=== PATIENT | male | born 1940 | race Caucasian/White ===

== ENCOUNTER 2016-09-14 09:11 | Day surgery (SDC) | payer MEDICARE, OTHER ==
[2016-09-14] MEDS ORDERED: LACTATED RINGERS 1,000 ML IV ONE (10:00)
[2016-09-14] MEDS ORDERED: MIDAZOLAM 2 MG/2 ML VIAL IVP ONE (11:04)
[2016-09-14] MEDS ORDERED: fentaNYL 100 MCG/2 ML VIAL IVP ONE (11:04)
== END 2016-09-14 09:12 | disposition home or self-care (01) ==
PROC: 0DBN8ZX Excision of Sigmoid Colon, Via Natural or Artificial Opening Endoscopic, Diagnostic (ICD-10-PCS; 2016-09-14)
PROC: 0DBK8ZX Excision of Ascending Colon, Via Natural or Artificial Opening Endoscopic, Diagnostic (ICD-10-PCS; principal; 2016-09-14 10:00)
DX: K62.5 Hemorrhage of anus and rectum (principal); D12.2 Benign neoplasm of ascending colon; K63.5 Polyp of colon; K57.30 Diverticulosis of large intestine without perforation or abscess without bleeding; I78.1 Nevus, non-neoplastic; K64.0 First degree hemorrhoids; I25.10 Atherosclerotic heart disease of native coronary artery without angina pectoris; Z79.82 Long term (current) use of aspirin; E78.5 Hyperlipidemia, unspecified
CPT/HCPCS: 45380; J7120

== ENCOUNTER 2017-03-24 11:05 | Outpatient (CLI) | payer MEDICARE, OTHER ==
--- NOTE | 2017-03-24 13:49 | XRAY Report ---
CHEST TWO VIEWS: 03/24/2017 CLINICAL HISTORY: Lymphadenopathy. COMPARISON: 05/04/2014. FINDINGS: The heart size is normal. The lungs are clear. No pleural effusion or pneumothorax. Age-re lated changes in the bones. IMPRESSION: NEGATIVE TWO VIEW CHEST FOR AGE. JOB #: [id number] EXT JOB #:[id number]
== END 2017-03-24 11:06 | disposition home or self-care (01) ==
LOC: DI.S 11:05
PROVIDERS: ATTEND Specialist
DX: R59.0 Localized enlarged lymph nodes (principal)
CPT/HCPCS: 71020

== ENCOUNTER 2017-05-15 08:14 | Outpatient (CLI) | payer MEDICARE, OTHER | END 2017-05-15 08:15 | disposition home or self-care (01) | LOC: DI 08:14 | PROVIDERS: ATTEND Specialist | DX: R94.31 Abnormal electrocardiogram [ECG] [EKG] (principal); I25.10 Atherosclerotic heart disease of native coronary artery without angina pectoris; I25.2 Old myocardial infarction; E78.4 Other hyperlipidemia; R59.9 Enlarged lymph nodes, unspecified | CPT/HCPCS: 93306 ==

== ENCOUNTER 2017-06-28 14:08 | Outpatient (CLI) | payer MEDICARE, OTHER | END 2017-06-28 14:09 | disposition short-term general hospital (02) | LOC: EMS 14:08 | PROVIDERS: ATTEND Surgery | DX: R53.1 Weakness (principal) | CPT/HCPCS: A0425; A0427 ==

== ENCOUNTER 2019-05-17 03:25 | Outpatient (CLI) | payer MEDICARE, OTHER | END 2019-05-17 03:26 | disposition critical access hospital (66) | LOC: EMS 03:25 | PROVIDERS: ATTEND Surgery | DX: R41.0 Disorientation, unspecified (principal); R06.6 Hiccough | CPT/HCPCS: A0425; A0429 ==

== ENCOUNTER 2019-05-17 03:52 | Emergency (ER) | payer MEDICARE, OTHER ==
--- NOTE | 2019-05-17 04:23 | ED Physician Documentation ---
PD HPI ALTERED MENTAL STATUS - Stated complaint Stated Complaint: AMS - Chief complaint Chief Complaint: Neuro - History obtained from History obtained from: Patient - History of Present Illness Timing - onset: How many minutes ago (approximately 30-45 minutes [facility] [employer]) Timing - duration: Minutes (15) Timing - details: Abrupt onset Quality / character: Confused Associated symptoms: Headache, Stiff neck. No: Fever Basline status: Alert and oriented X 3, Ambulatory, Independent Similar symptoms before: Has not had sx before Recently seen: Other (underwent upper endoscopy 05/11/19 to treat food bolus impaction.) - Additional information Additional information: patient's chief complaint/concern is that he had approximately 15 minutes of difficulty with speech. Patient underwent upper endoscopy 05/11/19 for food bolus impaction; this procedure was performed at [facility]. He says he has been only taking in liquid diet since that time, and he emphasizes that he has been drinking a lot of water. Tonight, he vomited. His then took his temperature and it was normal. She then was talking to him and thought he was making odd statements. She asked him what his temperature was (she had read it off to him), and he could not recall. He then started talking about unrelated and odd things, and seemed to be having great difficulty and frustration with word-finding, at times not even speaking. This lasted approximately 15 minutes but by the time of ED presentation, it has completely resolved. In ED, he tells me he is having right-sided headache and feels neck stiffness. I note a right neck/chest rash, and he says this started 3 days ago. Review of Systems Constitutional: denies: Fever, Chills, Myalgias, Sweats Eyes: denies: Loss of vision, Decreased vision Cardiac: reports: Reviewed and negative Respiratory: reports: Reviewed and negative GI: reports: Nausea, Vomiting. denies: Abdominal Pain, Constipation, Diarrhea : reports: Frequency (reports urinary frequency that sounds proportional to PO intake; he emphasizes that he has been drinking copious amounts of water since having the procedure a few days ago). denies: Dysuria Skin: reports: Rash (right neck and chest/upper back) Musculoskeletal: denies: Neck pain (neck feels "stiff" (per patient), but not pain per se) Neurologic: reports: Confused, Altered mental status, Headache. denies: Generalized weakness, Focal weakness, Numbness PD PAST MEDICAL HISTORY - Past Medical History Past Medical History: Yes Cardiovascular: Coronary artery disease, [place] Respiratory: None Neuro: None Endocrine/Autoimmune: None GI: None : None HEENT: None Psych: None Musculoskeletal: Rheumatoid arthritis Derm: Other - Past Surgical History Past Surgical History: Yes General: Cholecystectomy Cardiovascular: Coronary stent - Present Medications Home Medications: Ambulatory Orders Medication Instructions Recorded Confirmed Atorvastatin [Lipitor] 80 mg ORAL QPM 05/04/14 09/14/16 Lactobacillus Combo No.10 1 each PO PRN PRN 05/04/14 09/14/16 [Probiotic] Aspirin [Aspir-Low] 81 mg PO DAILY 09/14/16 09/14/16 Baclofen [Lioresal] 10 mg PO TID #20 tablet 05/17/19 - Allergies Allergies/Adverse Reactions: Allergies Allergy/AdvReac Type Severity Reaction Status Date / Time codeine AdvReac Hallucinati Verified 05/11/19 14:35 ons - Social History Does the pt smoke?: No Smoking Status: Never smoker Does the pt drink ETOH?: Yes Does the pt have substance abuse?: No - Immunizations Immunizations are current?: Yes - POLST Patient has POLST: No PD ED PE NORMAL - Vitals Vital signs reviewed: Yes - General General: Alert and oriented X 3, No acute distress, Well developed/nourished - HEENT HEENT: Atraumatic, PERRL, EOMI, Moist mucous membranes - Neck Neck: Supple, no meningeal sign - Cardiac Cardiac: RRR, No murmur, No gallop, No rub - Respiratory Respiratory: No respiratory distress, Clear bilaterally - Abdomen Abdomen: Soft, Non tender, Non distended - Back Back: No CVA TTP - Extremities Extremities: No edema - Neuro Neuro: Alert and oriented X 3, 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, No motor deficit, No sensory deficit, Normal speech Eye Opening: Spontaneous Motor: Obeys Commands Verbal: Oriented GCS Score: 15 PD ED PE EXPANDED - Derm Derm: Rash (exanthem on right upper chest, shoulder, trapezial ridge, and upper right back: patchy flat erythema with clusters of clear vesicles) Results - Vitals Vitals: Vital Signs - 24 hr 05/17/19 05/17/19 05/17/19 03:56 06:14 07:10 Temperature 37 C Heart Rate 81 66 67 Respiratory 16 16 16 Rate Blood Pressure 155/93 H 147/82 H 150/67 H O2 Saturation 96 94 93 05/17/19 08:38 Temperature Heart Rate 84 Respiratory 18 Rate Blood Pressure 157/73 H O2 Saturation 98 Oxygen O2 Source [With Activity] Room air O2 Source [Without Activity] Room air O2 Source Room air - Labs Labs: Laboratory Tests 05/17/19 05/17/19 05/17/19 04:00 04:00 04:00 WBC 8.4 RBC 4.15 L Hgb 14.5 Hct 39.2 L MCV 94.5 H MCH 34.9 H MCHC 37.0 H RDW 11.7 L Plt Count 160 MPV 9.8 Neut # (Auto) 6.6 Lymph # (Auto) 1.1 L [place] # (Auto) 0.6 Eos # (Auto) 0.0 Baso # (Auto) 0.0 Absolute Nucleated RBC 0.00 Nucleated RBC % 0.0 Sodium 124 L Potassium 3.5 Chloride 91 L Carbon Dioxide 22 Anion Gap 11.0 BUN 11 Creatinine 0.6 Estimated GFR (MDRD) 130 Glucose 97 Calcium 8.4 L Total Bilirubin 1.8 H AST 32 ALT 37 Alkaline Phosphatase 48 Total Protein 6.5 L Albumin 3.8 Globulin 2.7 Albumin/Globulin Ratio 1.4 Lipase 31 TSH 1.84 Urine Color Urine Clarity Urine pH Ur Specific [place] Urine Protein Urine Glucose (UA) Urine Ketones Urine Occult Blood Urine Nitrite Urine Bilirubin Urine Urobilinogen Ur Leukocyte Esterase Urine RBC Urine WBC Ur Squamous Epith Cells Urine Bacteria Ur Microscopic Review Urine Culture Comments 05/17/19 04:54 WBC RBC Hgb Hct MCV MCH MCHC RDW Plt Count MPV Neut # (Auto) Lymph # (Auto) [place] # (Auto) Eos # (Auto) Baso # (Auto) Absolute Nucleated RBC Nucleated RBC % Sodium Potassium Chloride Carbon Dioxide Anion Gap BUN Creatinine Estimated GFR (MDRD) Glucose Calcium Total Bilirubin AST ALT Alkaline Phosphatase Total Protein Albumin Globulin Albumin/Globulin Ratio Lipase TSH Urine Color YELLOW Urine Clarity CLEAR Urine pH 6.0 Ur Specific [place] <=1.005 Urine Protein NEGATIVE Urine Glucose (UA) NEGATIVE Urine Ketones 40 H Urine Occult Blood SMALL H Urine Nitrite NEGATIVE Urine Bilirubin NEGATIVE Urine Urobilinogen 0.2 (NORMAL) Ur Leukocyte Esterase NEGATIVE Urine RBC 0-5 Urine WBC 0-3 Ur Squamous Epith Cells RARE Squamous Urine Bacteria None Seen Ur Microscopic Review INDICATED Urine Culture Comments NOT INDICATED - Rads (name of study) CT head Radiology: Prelim report reviewed, See rad report PD MEDICAL DECISION MAKING - ED course Complexity details: reviewed old records, reviewed results, re-evaluated patient, considered differential ED course: reassuring results on CT head (unremarkable for acute or otherwise concerning findings), and his difficulty with speech had resolved [employer] [employer]. He has notable hyponatremia on blood tests (124) and this is compared to 140 on 05/11. This is likely due to the copious free water intake he describes to me; it is not clear why he has been drinking so much water, although in conversing with him , I get the impression that he feels this is a means of compensating for decreased PO intake (which sounds like is due to fear that something will again get caught in esophagus). At times, patient and spouse sound as if they are describing expressive aphasia; he says he was able to form normal thoughts but had difficulty getting the words out. At other times, it sounds as if he was having difficulty focusing/mentating, and this was why he had difficulty communicating. The former would be more suggestive of TIA while the latter would be typical for hyponatremia. I discussed this with patient and spouse and explained that it would be best to assume some element of both of these processes, and that further testing will likely be required (such as rechecking sodium levels, and following up with further testing for TIA such as carotid doppler studies and cardiac echo, possibly MRI). As he is feeling well at end of ED stay, these tests can take place in the outpatient setting. They understand he should return immediately if symptoms return or worsen in any way. As for the rash, it is clearly shingles. The symptoms started at least 72 hours ago and he does not feel that there are new lesions still forming. We discussed the option of antiviral medication, but beyond the 72 hour onset, benefit is questionable. Furthermore, patient is still quite reluctant to try anything solid PO including medications, and the schedule for these medications would be 3-5 times per day, depending on which medication is used. He declines antivirals, which is reasonable in an immunocompetent host with over 72 hours since symptom onset and no new lesions forming. He was given 2 liters NS to raise sodium level. Recheck not performed after this was d/w patient and spouse. There is no reason to suspect the level will decrease after this intervention, and as he is feeling well and sodium level is likely to be trending above 125 at this point, I did not feel there would be a benefit in holding him in ED until another sodium level is checked. However, I emphasized to him that his frequent water intake is likely contributing to, and probably simply causing, his low sodium. I instructed him to add some salt to his diet for the short term (5-7 days), and to try to hydrate with substances other than free ("plain") water for most of the day. Departure - Departure Disposition: 01 Home, Self Care Clinical Impression: Hyponatremia, TIA (transient ischemic attack) Shingles Qualifiers: Herpes zoster complications: without complications Qualified Code(s): B02.9 - Zoster without complications Condition: Good Instructions: ED Hyponatremia, ED Transient Ischemic Attack, ED Shingles Follow-Up: Dannie Medina ND [Primary Care Provider] - Prescriptions: Baclofen [Lioresal] 10 mg PO TID #20 tablet Discharge Date/Time: 05/17/19 09:17
[2019-05-17 04:58] LABS: BASOPHILS % (AUTO) 0.4 %; EOSINOPHILS % (AUTO) 0.5 %; HGB - HEMOGLOBIN 14.5 g/dL (14.0-18.0); LYMPHOCYTES # (AUTO) 1.1 10^3/uL (1.5-3.5); MEAN CORPUSCULAR HEMOGLOBIN 34.9 pg (27.0-31.0); MEAN CORPUSCULAR VOLUME 94.5 fL (80.0-94.0); MEAN PLATELET VOLUME 9.8 fL (7.4-11.4); MONOCYTES # (AUTO) 0.6 10^3/uL (0.0-1.0); MONOCYTES % (AUTO) 7.4 %; NEUTROPHILS # (AUTO) 6.6 10^3/uL (1.5-6.6); NEUTROPHILS % (AUTO) 77.9 %; PLT - PLATELET COUNT 160 10^3/uL (130-450); RED BLOOD COUNT 4.15 10^6/uL (4.70-6.10); RED CELL DISTRIBUTION WIDTH 11.7 % (12.0-15.0); WHITE BLOOD COUNT 8.4 x10^3/uL (4.8-10.8)
[2019-05-17 05:02] LABS: BILIRUBIN,URINE NEGATIVE (NEGATIVE); GLUCOSE, URINE (UA) NEGATIVE (NEGATIVE); KETONES,URINE (UA) 40 mg/dL (NEGATIVE); LEUKOCYTE ESTERASE, URINE NEGATIVE (NEGATIVE); NITRITE,URINE NEGATIVE (NEGATIVE); OCCULT BLOOD,URINE SMALL (NEGATIVE); PROTEIN,URINE NEGATIVE (NEGATIVE); UROBILINOGEN,URINE 0.2 (NORMAL) E.U./dL (NORMAL)
[2019-05-17 05:10] LABS: BACTERIA,URINE None Seen /HPF (None Seen); CLARITY,URINE CLEAR (CLEAR); RBC,URINE 0-5 /HPF (0-5); SQUAMOUS EPITHELIAL CELL,UR RARE Squamous (<= Few)
[2019-05-17 05:10] LABS: ALBUMIN 3.8 g/dL (3.2-5.5); ALBUMIN/GLOBULIN RATIO 1.4 (1.0-2.2); BILIRUBIN,TOTAL 1.8 mg/dL (0.2-1.0); CALCIUM 8.4 mg/dL (8.5-10.3); CREATININE 0.6 mg/dL (0.6-1.2); TOTAL PROTEIN 6.5 g/dL (6.7-8.2)
[2019-05-17] MEDS ORDERED: BACLOFEN 10 MG TABLET PO STA (05:18)
--- NOTE | 2019-05-17 05:33 | CT Report ---
Reason: AMS Procedure Date: 05/17/2019 Accession Number: [id number] / [id number] Procedure: CT - HEAD WO CPT Code: Final Report FULL RESULT: EXAM: CT HEAD EXAM DATE: 05/17/2019 05:17 AM CLINICAL HISTORY: Altered mental status. COMPARISON: None. TECHNIQUE: Multiaxial CT images were obtained from the foramen magnum to the vertex. Reformats: Sagittal and coronal. IV contrast: None. In accordance with CT protocol optimization, one or more of the following dose reduction techniques were utilized for this exam: automated exposure control, adjustment of mA and/or KV based on patient size, or use of iterative reconstructive technique. FINDINGS: Parenchyma: No intraparenchymal hemorrhage. No evidence of mass, midline shift or CT findings of acute infarction. Mejia-white differentiation is distinct. Diffuse mild chronic microangiopathic white matter changes are evident. Extraaxial Spaces: Normal for age. No subdural or epidural collections identified. Ventricles: The ventricles and cortical sulci are enlarged, consistent with age-related tissue loss. Sinuses: Imaged paranasal sinuses, orbits, and mastoids show no significant abnormality. Bones: No evidence of fracture or calvarial defect. Other: None. IMPRESSION: Mild senescent changes without evidence of acute intracranial abnormality. RADIA
[2019-05-17] MEDS ORDERED: SODIUM CHLORIDE 0.9% 1,000 ML IV STA ×2 (06:48→06:49)
[2019-05-17 08:38] VITALS: BP 157/73
== END 2019-05-17 09:17 | disposition home or self-care (01) ==
LOC: EDUNIT# → ED 03:52
DX: G45.9 Transient cerebral ischemic attack, unspecified (principal); B02.9 Zoster without complications; E87.1 Hypo-osmolality and hyponatremia; R35.0 Frequency of micturition; I25.10 Atherosclerotic heart disease of native coronary artery without angina pectoris; Z95.5 Presence of coronary angioplasty implant and graft; Z79.82 Long term (current) use of aspirin
CPT/HCPCS: 36415; 70450; 80053; 81001; 83690; 84443; 85025; 99284; A9270; 81003; 87086

== ENCOUNTER 2019-06-04 10:01 | Day surgery (SDC) | payer MEDICARE, OTHER ==
[2019-06-04] MEDS ORDERED: LACTATED RINGERS 1,000 ML IV ONE (10:09)
[2019-06-04 10:42] LABS: CALCIUM 8.9 mg/dL (8.5-10.3); CREATININE 0.8 mg/dL (0.6-1.2)
[2019-06-04] MEDS ORDERED: LIDO GARGLE 30 ML BOTTLE ONE (10:56)
--- NOTE | 2019-06-04 11:09 | ANESTHESIA ---
Pre-Anesthesia VS, & Labs - Diagnosis Esophagitis, food bolus impaction - Procedure EGD Vital Signs: Temp Pulse Resp BP Pulse Ox 36.4 C L 117 H 18 160/99 H 94 06/04/19 10:13 06/04/19 10:13 06/04/19 10:13 06/04/19 10:13 06/04/19 10:13 Height 5 ft 8 in Weight (kg) 88 kg Body Mass Index 32.6 Home Medications and Allergies Atorvastatin [Lipitor] 80 mg ORAL QPM 05/04/14 Lactobacillus Combo No.10 [Probiotic] 1 each PO PRN PRN 05/04/14 Aspirin [Aspir-Low] 81 mg PO DAILY 09/14/16 Allergies/Adverse Reactions: Allergies Allergy/AdvReac Type Severity Reaction Status Date / Time codeine AdvReac Hallucinati Verified 05/11/19 14:35 ons Anes History & Medical History - Anesthetic History Anesthesia Complications: reports: No previous complications Family history of Anesthesia Complications: Denies Family history of Malignant Hyperthermia: Denies - Medical History Cardiovascular: reports: Coronary artery disease, [place], Other (two coronary stents and joey having any chest pain/pressure.sob) Pulmonary: reports: None Gastrointestinal: reports: Ulcers, Colon polyps Urinary: reports: Benign prostate hypertrophy, Other Neuro: reports: None Musculoskeletal: reports: None Endocrine/Autoimmune: reports: None Blood Disorders: reports: None Skin: reports: Other Smoking Status: Never smoker Psychosocial: reports: No issues indicated - Surgical History General: Cholecystectomy, Colonoscopy, EGD Cardiothoracic: Coronary stent Urologic: Prostatic surgery Exam General: Alert, Oriented x3, Cooperative, No acute distress Dental: WNL Mouth Openin Fingerbreadth Neck Mobility: Normal Mallampati classification: II Thyromental Distance: 4-6 cm Respiratory: Lungs clear, Normal breath sounds, No respiratory distress, No accessory muscle use Cardiovascular: Regular rate, Normal S1, Normal S2, No murmurs Abdomen: Normal bowel sounds, Soft, No tenderness, No hepatospenomegaly, No masses Extremities: No clubbing, No cyanosis, No edema, Normal pulses, No tenderness/swelling Neurological: Normal gait, Normal speech, Strength at 5/5 X4 ext, Normal tone, Sensation intact, Cranial nerves 3-12 NL, Reflexes 2+ Mental/Cognitive Status: Alert/Oriented X3, Normal for patient Cognitive Status: Within normal limits Plan Anesthesia Type: MAC Consent for Procedure(s) Verified and Reviewed: Yes Code Status: Attempt Resuscitation ASA classification: 3-Severe systemic disease Is this case an emergency?: No
[2019-06-04] MEDS ORDERED: LIDO GARGLE 30 ML BOTTLE PO ONE (11:29)
[2019-06-04 12:33] VITALS: BP 144/95
== END 2019-06-04 10:02 | disposition home or self-care (01) ==
LOC: SDS 10:01
PROVIDERS: ATTEND Surgery
PROC: 0DB98ZX Excision of Duodenum, Via Natural or Artificial Opening Endoscopic, Diagnostic (ICD-10-PCS; 2019-06-04)
PROC: 0DB68ZX Excision of Stomach, Via Natural or Artificial Opening Endoscopic, Diagnostic (ICD-10-PCS; 2019-06-04)
PROC: 0DB58ZX Excision of Esophagus, Via Natural or Artificial Opening Endoscopic, Diagnostic (ICD-10-PCS; 2019-06-04)
PROC: 0D748ZZ Dilation of Esophagogastric Junction, Via Natural or Artificial Opening Endoscopic (ICD-10-PCS; principal; 2019-06-04 11:15)
DX: K22.11 Ulcer of esophagus with bleeding (principal); R13.10 Dysphagia, unspecified; K22.2 Esophageal obstruction; K44.9 Diaphragmatic hernia without obstruction or gangrene; Z87.891 Personal history of nicotine dependence
CPT/HCPCS: 43239; 43249; 80048; A9270; J7120

== ENCOUNTER 2019-07-19 16:13 | Outpatient (CLI) | payer MEDICARE, OTHER ==
--- NOTE | 2019-07-22 09:09 | Ultrasound Report ---
Reason: HISTORY OF TIA Procedure Date: 07/19/2019 Accession Number: [id number] / [id number] Procedure: US - Carotid Doppler Complete CPT Code: Final Report FULL RESULT: EXAM: BILATERAL CAROTID AND VERTEBRAL ARTERY DUPLEX DOPPLER ULTRASOUND: EXAM DATE: 07/19/2019 07:10 PM CLINICAL HISTORY: History of TIA. COMPARISON: None. TECHNIQUE: Grayscale imaging, color Doppler, and duplex spectral Doppler were used to evaluate the carotid and vertebral arteries bilaterally. Static images were obtained. FINDINGS: Bilateral common carotid arteries have intimal hyperplasia. There is plaque at the bulbs with plaque at the proximal ICA and ECAs bilaterally. No significant elevation of peak systolic velocities in the ICAs.Normal antegrade flow is present in bilateral vertebral arteries. VELOCITIES (cm/sec): Right CCA mid: PSV 100.9 cm/sec CCA dist: PSV 88.8 cm/sec ICA prox: PSV 95.7 cm/sec, EDV 27.3 cm/sec ICA mid: PSV 90.4 cm/sec, EDV 30.4 cm/sec ICA dist: PSV 94.2 cm/sec, EDV 28.9 cm/sec ECA: PSV 129.9 cm/sec Vert: PSV 51.4 cm/sec ICA/CCA: 0.9 Left CCA mid: PSV 110.0 cm/sec CCA dist: PSV 89.4 cm/sec ICA prox: PSV 95.0 cm/sec, EDV 19.5 cm/sec ICA mid: PSV 98.5 cm/sec, EDV 24.5 cm/sec ICA dist: PSV 92.1 cm/sec, EDV 23.8 cm/sec ECA: PSV 105.6 cm/sec Vert: PSV 44.3 cm/sec ICA/CCA: 0.9 ICA diameter stenosis: Right: <50% by velocity and <70% by NASCET criteria. Left: <50% by velocity and <70% by NASCET criteria. IMPRESSION: 1. There is plaque in the bulbs, proximal ICAs and ECAs without significant stenosis. 2. In the right carotid artery there are no elevated carotid artery velocities to suggest hemodynamically significant stenosis. 3. In the left carotid artery there are no elevated carotid artery velocities to suggest hemodynamically significant stenosis. 4. Normal antegrade flow is present in bilateral vertebral arteries. General Recommendations: Stenosis =50% ICA - Follow-up ultrasound 6-12 months Stenosis <50% ICA - High Risk Patient with plaque - Follow-up ultrasound 1-2 years Normal Study but High Risk Patient - Follow-up ultrasound 3-5 years Management recommendations and diagnostic criteria are based on current IAC endorsed standards in Carotid Artery Stenosis: Grayscale and Doppler Ultrasound Diagnosis. Validated velocity measurements with angiographic measurements and velocity criteria are extrapolated from diameter data as defined by the Society of Radiologists in Ultrasound Consensus Conference Radiology 2003; 229;340-346. RADIA
== END 2019-07-19 16:14 | disposition home or self-care (01) ==
LOC: DI 16:13
PROVIDERS: ATTEND Family Medicine
DX: Z86.73 Personal history of transient ischemic attack (TIA), and cerebral infarction without residual deficits (principal)
CPT/HCPCS: 93880

== ENCOUNTER 2020-06-13 16:52 | Outpatient (CLI) | payer MEDICARE, OTHER | END 2020-06-13 16:53 | disposition EMS.NT | LOC: EMS 16:52 | PROVIDERS: ATTEND Surgery | DX: Z03.89 Encounter for observation for other suspected diseases and conditions ruled out (principal) ==

== ENCOUNTER 2020-10-22 12:36 | Outpatient (CLI) | payer MEDICARE, OTHER | END 2020-10-22 12:37 | disposition critical access hospital (66) | LOC: EMS 12:36 | DX: R53.1 Weakness (principal); R50.9 Fever, unspecified | CPT/HCPCS: A0425; A0429 ==

== ENCOUNTER 2020-11-05 01:28 | Outpatient (CLI) | payer MEDICARE, OTHER | END 2020-11-05 01:29 | disposition EMS.NT | LOC: EMS 01:28 | DX: Z03.89 Encounter for observation for other suspected diseases and conditions ruled out (principal) ==

== ENCOUNTER 2021-06-11 10:13 | Outpatient (CLI) | payer MEDICARE, OTHER | END 2021-06-11 10:14 | disposition EMS.NT | LOC: EMS 10:13 | DX: S00.01XA Abrasion of scalp, initial encounter (principal); W18.39XA Other fall on same level, initial encounter; Y93.89 Activity, other specified; Y92.002 Bathroom of unspecified non-institutional (private) residence as the place of occurrence of the external cause ==

== ENCOUNTER 2022-11-01 21:58 | Outpatient (CLI) | payer MEDICARE, OTHER | END 2022-11-01 21:59 | disposition EMS.NT | LOC: EMS 21:58 | DX: Z03.89 Encounter for observation for other suspected diseases and conditions ruled out (principal) ==

== ENCOUNTER 2022-11-11 04:52 | Outpatient (CLI) | payer MEDICARE, OTHER | END 2022-11-11 04:53 | disposition short-term general hospital (02) | LOC: EMS 04:52 | DX: R50.9 Fever, unspecified (principal); R31.9 Hematuria, unspecified; R10.30 Lower abdominal pain, unspecified | CPT/HCPCS: A0425; A0429 ==

== ENCOUNTER 2023-03-13 10:36 | Outpatient (CLI) | payer MEDICARE, OTHER | END 2023-03-13 23:59 | LOC: EMS 10:36 | PROVIDERS: ATTEND Family Medicine | DX: Z51.5 Encounter for palliative care (principal); G31.83 Neurocognitive disorder with Lewy bodies; F02.80 Dementia in other diseases classified elsewhere, unspecified severity, without behavioral disturbance, psychotic disturbance, mood disturbance, and anxiety; Z74.01 Bed confinement status | CPT/HCPCS: A0425; A0428 ==

== ENCOUNTER 2023-03-17 11:08 | Outpatient (CLI) | payer MEDICARE, OTHER | END 2023-03-17 11:09 | disposition hospice, home (50) | LOC: EMS 11:08 | PROVIDERS: ATTEND Family Medicine | DX: Z51.5 Encounter for palliative care (principal); Z74.01 Bed confinement status; R53.1 Weakness; R25.1 Tremor, unspecified; G31.83 Neurocognitive disorder with Lewy bodies; F02.80 Dementia in other diseases classified elsewhere, unspecified severity, without behavioral disturbance, psychotic disturbance, mood disturbance, and anxiety | CPT/HCPCS: A0425; A0428 ==

== ENCOUNTER 2023-07-10 09:48 | Outpatient (CLI) | payer MEDICARE, OTHER | END 2023-07-10 23:59 | LOC: EMS 09:48 | DX: Z51.5 Encounter for palliative care (principal); G31.83 Neurocognitive disorder with Lewy bodies; F02.80 Dementia in other diseases classified elsewhere, unspecified severity, without behavioral disturbance, psychotic disturbance, mood disturbance, and anxiety | CPT/HCPCS: A0425; A0428 ==

== ENCOUNTER 2023-07-14 14:15 | Outpatient (CLI) | payer OTHER, MEDICARE | END 2023-07-14 14:16 | LOC: EMS 14:15 | PROVIDERS: ATTEND Family Medicine | DX: Z51.5 Encounter for palliative care (principal); G31.83 Neurocognitive disorder with Lewy bodies; F02.80 Dementia in other diseases classified elsewhere, unspecified severity, without behavioral disturbance, psychotic disturbance, mood disturbance, and anxiety; Z74.01 Bed confinement status | CPT/HCPCS: A0425; A0428 ==